=== PATIENT | male | born 1975 | race Caucasian/White ===

== ENCOUNTER 2024-11-13 09:13 | Outpatient (CLI) | payer MEDICAID ==
[2024-11-13] MEDS ORDERED: iohexol 300mg/ml 100ml inj. ONE (09:38)
== END 2024-11-13 23:59 | disposition home or self-care (01) ==
LOC: RAD 09:13
PROVIDERS: ATTEND Internal Medicine Infectious Disease
DX: K80.20 Calculus of gallbladder without cholecystitis without obstruction (principal); K38.1 Appendicular concretions; K63.89 Other specified diseases of intestine; K65.1 Peritoneal abscess; Z90.49 Acquired absence of other specified parts of digestive tract
CPT/HCPCS: 74178; Q9967